=== PATIENT | female | born 1955 | race Two or more races ===

== ENCOUNTER 2019-05-20 06:41 | Day surgery (SDC) | payer OTHER ==
[~2019-05-20 06:41] MED LIST: HYZAAR 100-12.1 EACH; SYNTHROID50 MCG PO
[2019-05-20] MEDS ORDERED: IBUPROFEN600 MG PO (09:36)
== END 2019-05-20 13:20 | disposition home or self-care (01) ==
LOC: CIR.AMB 06:41
DX: N95.0 Postmenopausal bleeding (principal)